=== PATIENT | female | born 1940 | race Caucasian/White ===

== ENCOUNTER 2021-07-20 10:03 | Emergency (ER) | payer MEDICARE, OTHER ==
[~2021-07-20] VITALS: Ht 147.3 cm; Wt 95.5 kg
[~2021-07-20 10:03] MED LIST: CHOL2000 PO; COU3T PO; FURO-150 PO; HCTZ25T PO; METF-900 PO; OMEP-84 PO; QUIN5TAB PO; ZOC40T PO
--- NOTE | 2021-07-20 10:50 | NUR ---
[facility] service line at bedside
[2021-07-20] MEDS ORDERED: HYDROcodone/acetaminophen 5mg/325mg tablet PO ONE (10:55)
--- NOTE | 2021-07-20 11:27 | NUR ---
Pt up to the bathroom. Pt able to bear weight and ambulate 5 feet with assistance.
[2021-07-20] MEDS ORDERED: TRAM50TA2 PO (11:32)
--- NOTE | 2021-07-20 13:09 | NUR ---
Pt ambulated with her own walker approximately 25 feet to the bathroom without assistance.
--- NOTE | 2021-07-20 13:33 | NUR ---
Martha, social scientist at bedside.
[2021-07-20 14:02] VITALS: BP 140/74
== END 2021-07-20 14:05 | disposition home or self-care (01) ==
LOC: ER 10:04
DX: G89.29 Other chronic pain (principal); M25.552 Pain in left hip; M71.22 Synovial cyst of popliteal space [Baker], left knee; M16.12 Unilateral primary osteoarthritis, left hip; I10 Essential (primary) hypertension; E11.9 Type 2 diabetes mellitus without complications; Z88.8 Allergy status to other drugs, medicaments and biological substances
CPT/HCPCS: 73502; 93971; 99284